=== PATIENT | male | born 1980 | race Caucasian/White ===

== ENCOUNTER 2018-05-08 23:17 | Emergency (ER) | payer BC, SELFPAY ==
[2018-05-08 23:17] VITALS: BP 174/92; PULSE 84; RESP 22; TEMP 36.6; O2SAT 97; BMI 54.1
--- NOTE | 2018-05-08 23:39 | EKG12_ITS ---
Test Reason : CP Blood Pressure : / mmHG Vent. Rate : 085 BPM Atrial Rate : 085 BPM P-R Int : 154 ms QRS Dur : 102 ms QT Int : 376 ms P-R-T Axes : 009 032 041 degrees QTc Int : 447 ms Normal sinus rhythm Normal ECG Confirmed by SAPNA DOE ([id number]), avid editor LAUREN CA ([id number]) on 05/12/2018 1:26:48 PM Referred By: MISSY Confirmed By:SAPNA DOE
--- NOTE | 2018-05-08 23:40 | RAD_ITS ---
STUDY: X-RAY CHEST REASON FOR EXAM: Male, 37 years old. Chest pain. TECHNIQUE: Frontal and lateral views of the chest. COMPARISON: None. FINDINGS: The lungs are clear and expanded. There is no demonstrated pleural abnormality. Normal size heart. Normal mediastinum and clifton. Normal visualized pulmonary arteries. Normal visualized aortic arch and descending thoracic aorta. Normal visualized thoracic spine. Normal visualized ribs, clavicles, and shoulders. There is no demonstrated abnormality of the visualized soft tissue structures of the upper abdomen. RAD/Chest PA and Lateral IMPRESSION: Normal x-ray examination of the chest. Electronically Signed: Shane Koch MD at 0:10 EST , Service support ,
--- NOTE | 2018-05-08 23:49 | ED.DCSUM_ITS ---
- ER Visit Summary Date of Service: 05/08/18 Chief Complaint: Chest pain History of Present Illness: The patient is a 37 M is ending with 1 hour of bilateral upper chest pain. It started at rest. It was not worse with exertion nor was it pleuritic. No recent travel or immobilization. No history of DVT or PE. No associated diaphoresis. It has now resolved. He does have a history of hypertension and missed his medication the last 2 days but did take it today. He also smokes and states his blood pressure becomes more elevated when he has not smoked cigarettes in a while. He has not smoked for at least 2 hours now. He had chest pain 6 months ago and had an extensive evaluation Physical Examination: He is hypertensive but other vitals are within normal limits. He is not in distress. Neck is supple. Heart tones are regular and without murmur. Lungs are clear bilaterally. Abdomen is soft and nontender. Strong pulses in all extremities. No tenderness along the lower extremity venous system, palpable cords, or other evidence of DVT. Test Results: EKG is unremarkable. He is pain-free now. Blood pressure is somewhat elevated. He will be observed here and labs are pending. Care will be turned over to the oncoming physician to check labs. Emergency Department Course and Treatment: [] Treatment Plan: [] Disposition: [] Impression: [] This note was generated with [employer] dictation software. It may contain incorrect words, spelling, and punctuation that were not noted in review of the chart prior to signing ED Disposition - Plan for ED Patient: Referrals: Mark Mccarthy III, MD [Primary Care Provider] -
[2018-05-08] MEDS: Aspirin 81 MG TAB.CHEW 324 MG PO (23:58)
[2018-05-09 00:05] VITALS: BP 162/95; PULSE 79; RESP 17
[2018-05-09 00:25] LABS: Absolute Lymphocyte Count 2.72 X10^3/ul (0.83-4.51); Absolute Neutrophil Count 5.7 X10^3/uL (2.0-7.7); Basophil# 0.02 X10^3/uL; Basophil% 0.2 % (0-1); Eosinophils% 2.1 % (0-5); Hematocrit 46.2 % (40-54); Hemoglobin 14.9 g/dl (13.0-16.5); Lymphocyte # 2.72 X10^3/ul (4.0); Lymphocyte % 29.1 % (19-41); Mean Corp Hgb Conc 32.3 g/gl (32-36); Mean Corpuscular Hgb 26.8 pg (27.0-32.0); Mean Corpuscular Volume 83.2 fL (80-94); Mean Platelet Vol. 10.8 fl (6.2-12.0); Monocyte# 0.73 X10^3/uL; Monocyte% 7.8 % (0-10); Neutrophil # 5.65 X10^3/uL (2.7-7.7); Neutrophil % 60.5 % (47-70); Platelet Count 253 K/mm3 (150-450); RBC Distribution Width CV 14.4 % (11.6-14.6); RBC Distribution Width SD 43.9 fl (35.1-43.9); Red Blood Count 5.55 M/mm3 (4.6-6.2); White Blood Count 9.4 K/mm3 (4.4-11.0)
[2018-05-09 00:33] LABS: POSITIVE COUNT NO; POSITIVE DIFFERENTIAL NO; POSITIVE MORPHOLOGY NO
[2018-05-09 00:57] LABS: Anion Gap 7 (5-15); BUN 9 mg/dL (7-18); BUN/Creat Ratio 11.6 RATIO (10-20); Calcium,Total 8.5 mg/dL (8.5-10.1); Chloride 110 mmol/L (98-107); Creatinine, Serum 0.77 mg/dL (0.70-1.30); EST Glomerular Filtration Rate 121 mL/min (>60); Est Glom Filt Rate - Afr Amer 146 mL/min (>60); Estimated Creatinine Clearance 145.57 ml/min; Glucose 86 mg/dL (74-106); Potassium 4.6 mmol/L (3.5-5.1); Sodium Level 141 mmol/L (136-145)
[2018-05-09 02:01] VITALS: BP 154/65; PULSE 72; RESP 22; O2SAT 98
--- NOTE | 2018-05-09 03:39 | ED.DEP ---
ED Disposition - Plan for ED Patient: Disposition: Home or Assisted Living Diagnosis: Chest pain, unspecified Instructions: ED Chest Pain Atypical Unkn Cause Referrals: Mark Mccarthy III, MD [Primary Care Provider] - (call for appt this week)
[2018-05-09 03:53] VITALS: BP 150/77; PULSE 75; RESP 14; O2SAT 100
== END 2018-05-09 03:53 | disposition home or self-care (01) ==
PROVIDERS: Emergency Medicine; Emergency Provider Emergency Medicine; Family Provider Family Medicine; PCP Family Medicine
DX: R07.9 Chest pain, unspecified (principal); I10 Essential (primary) hypertension; Z72.0 Tobacco use
CPT/HCPCS: 71046; 80048; 84484; 85025; 93005; 99285; A4216

== ENCOUNTER 2018-09-19 12:24 | Day surgery (SDC) | payer BC, SELFPAY ==
[2018-09-19 12:40] VITALS: BP 136/87; PULSE 72; RESP 18; TEMP 37.5; O2SAT 99; BMI 50.5
[2018-09-19 13:02] LABS: Anion Gap 8 (5-15); BUN 13 mg/dL (7-18); BUN/Creat Ratio 18.8 RATIO (10-20); Calcium,Total 8.9 mg/dL (8.5-10.1); Chloride 109 mmol/L (98-107); Creatinine, Serum 0.69 mg/dL (0.70-1.30); EST Glomerular Filtration Rate 137 mL/min (>60); Est Glom Filt Rate - Afr Amer 166 mL/min (>60); Estimated Creatinine Clearance 162.45 ml/min; Glucose 91 mg/dL (74-106); Potassium 3.9 mmol/L (3.5-5.1); Sodium Level 142 mmol/L (136-145)
--- NOTE | 2018-09-19 13:43 | PCM.DC ---
You will use the following diet at home:: No restrictions Discharge Activity: May not drive while taking narcotic pain medications. Call your doctor if your incision/area has: Increased Pain/ Swelling Additional Dressing/Incision Instructions:: nasal saline to both nostrils 5 times daily. mupirocin ointment to incisions twice daily. sleep with head of bed elevated. do not get bridge of nose wet until the morning of your follow up, then get it very wet. Allergies/Adverse Reactions: Allergies No Known Allergies Allergy (Verified 09/19/18 12:40) Medications to take at Discharge Lisinopril [Zestril] 20 mg PO DAILY 05/08/18 Oxycodone HCl/Acetaminophen [Percocet 5/325] 1 tab PO Q6H PRN PRN 5 Days #15 tab 09/19/18 Sulfamethoxazole/Trimethoprim [Bactrim 400-80 mg Tablet] 1 ea PO BID #12 tab 09/19/18 The following prescriptions were given: Sulfamethoxazole/Trimethoprim [Bactrim 400-80 mg Tablet] 1 ea PO BID #12 tab Prescription Printed Oxycodone HCl/Acetaminophen [Percocet 5/325] 1 tab PO Q6H PRN PRN 5 Days #15 tab PRN Reason: Pain Prescription Printed Orders to be completed after discharge: Basic Metabolic Profile (BMP) Time Frame: 09/19/18, Facility: [facility], Location: Laboratory Primary Care Physician: Mark Mccarthy III, MD [Primary Care Provider] - Test Results: Test results from this visit will be discussed in further detail at your follow-up appointment, if applicable. Please Follow Up With: Tres Tony MD When: 1 week
--- NOTE | 2018-09-19 13:45 | OP.PCM_ITS ---
Problem List (1) Nasal congestion Status: Chronic (2) Nasal septal deformity Status: Chronic (3) Nasal bones, closed fracture Status: Chronic (4) Nasal valve collapse Status: Chronic (5) Nasal turbinate hypertrophy Status: Chronic Report of Operation Date of Procedure: 09/19/18 Pre-Operative Diagnosis: 1. nasal congestion. 2. nasal septal deviation. 3. internal nasal valve collapse, right and left. 4. nasal bone fracture. 5. inferior turbinate hypertrophy, right and left Post-Operative Diagnosis: 1. nasal congestion. 2. nasal septal deviation. 3. internal nasal valve collapse, right and left. 4. nasal bone fracture. 5. inferior turbinate hypertrophy, right and left Surgery/Procedure Performed:: 1. open septorhinoplasty. 2. correction internal nasal valve collapse, right and left. 3. submucous resection inferior turbinates, right and left Type of Anesthesia:: General Description of Procedure: on the day of the procedure, after appropriate informed consent was obtained, the patient was brought to the operating room and placed in supine position on the operating table. he was placed under general endotracheal anesthesia by the anesthesiologist. the endotracheal tube was secured, the eyes were taped. the table was rotated 90 degrees toward the surgeon. the nose was injected with lidocaine/epinephrine. the face was prepped and draped in sterile fashion. an inverted v columellar incision was made with a [place] blade. this traversed into right and left marginal incisions using three point retraction and an iris scizzor. the scroll region and upper lateral cartilages were dissected. the medial crura were lateralized and the anterior septal angle was located. submucoperichondrial flaps were dissected on the left then right with a yogesh elevator. this was taken posteriorly to the bony/cartilaginous junction and inferiorly to the maxillary crest. a # 15 blade was used to disarticulate the upper lateral cartilages from the nasal septum. - Admit VTE Documentation VTE Mechan Device Prophylaxis: SCD's
[2018-09-19] MEDS: Oxymetazoline 0.05% 1 SPRAY SPRAY.BTL 15 SPRAY (14:30)
[2018-09-19] MEDS: Mupirocin Ointment 22gm Tube 1 APPLIC (16:00)
[2018-09-19 16:46] VITALS: BP 136/87; BP 92/45; PULSE 73; RESP 16; TEMP 36.2; O2SAT 93
[2018-09-19 17:00] VITALS: BP 136/87; BP 92/65; PULSE 74; RESP 16; O2SAT 90
[2018-09-19 17:15] VITALS: BP 136/87; BP 90/52; PULSE 79; RESP 16; TEMP 36.5; O2SAT 92
[2018-09-19] MEDS: Ondansetron 4 MG/2 ML Vial IV (18:00)
[2018-09-19] MEDS: Scopolamine 1mg/72hr Patch 1 PATCH TD (18:11)
[2018-09-19 18:40] VITALS: BP 106/67; BP 136/87; PULSE 69; RESP 16; TEMP 36.5; O2SAT 95
== END 2018-09-19 19:09 | disposition home or self-care (01) ==
LOC: SDC 12:26 → AC 12:27
PROVIDERS: Anesthesiology; Family Provider Family Medicine; PCP Family Medicine; Referring Provider Otolaryngology; Visit Provider Otolaryngology
PROC: (CPT 30140; principal; 2018-09-19 13:45)
DX: J34.2 Deviated nasal septum (principal); J34.3 Hypertrophy of nasal turbinates; R09.81 Nasal congestion; M95.0 Acquired deformity of nose; G47.30 Sleep apnea, unspecified; I10 Essential (primary) hypertension; F17.200 Nicotine dependence, unspecified, uncomplicated; Z79.899 Other long term (current) drug therapy
CPT/HCPCS: 30140; 30420; 36415; 80048; J7120; J2405

== ENCOUNTER 2019-03-04 13:48 | Emergency (ER) | payer BC, SELFPAY ==
[2019-03-04 13:49] VITALS: BP 129/72; PULSE 74; RESP 18; O2SAT 98
[2019-03-04 13:50] VITALS: BP 129/72; PULSE 84; RESP 17; TEMP 37.1; O2SAT 98; BMI 42.0
[2019-03-04] MEDS: Ketorolac 30 MG/ML Syringe IV (14:04)
[2019-03-04] MEDS: Ondansetron 4 MG/2 ML Vial IV (14:04)
--- NOTE | 2019-03-04 15:23 | CT_ITS ---
STUDY: CT ABDOMEN AND PELVIS WITHOUT CONTRAST REASON FOR EXAM: Male, 38 years old. RT FLANK PAIN RADIATION DOSAGE (If Supplied By Facility): CTDIvol = ( 23.89 ) mGy, DLP = ( 1271.21 ) mGycm TECHNIQUE: Transaxial images were obtained from the dome of the diaphragm to the symphysis pubis without oral contrast, and without intravenous contrast. Sagittal and coronal images were reconstructed. Individualized dose optimization techniques were used for this CT. COMPARISON: None. FINDINGS: The visualized lung bases are unremarkable. The visualized portions of the heart are within normal limits. There is decreased attenuation of the liver consistent with steatosis. Normal gallbladder and extrahepatic biliary system. Normal spleen. Normal pancreas. Normal bilateral adrenal glands. Mild right hydronephrosis and perinephric stranding. Mild right hydroureter with a 2 mm calculus in the region of the right UVJ on image 160. Normal left kidney. There are operative changes of the stomach compatible with bariatric surgery. No dilated loops of small bowel. Normal colon. The appendix is visualized and appears normal. Normal abdominal aorta. Normal inferior vena cava. Normal retroperitoneum. Normal urinary bladder. Normal abdominal wall. Normal osseous structures. CT/Abdomen/Pelvis without Cont IMPRESSION: 1. 2 mm right UVJ calculus with mild hydronephrosis. Electronically Signed: Jose Cruz Collins MD (Brooks) at 16:53 EST , Service support ,
--- NOTE | 2019-03-04 15:25 | ED.DCSUM_ITS ---
- ER Visit Summary Date of Service: 03/04/19 Chief Complaint: Flank pain History of Present Illness: The patient is a 38 M with right flank pain since yesterday. He has a history of kidney stones. No other abdominal pathology or symptoms previously. Physical Examination: Afebrile and vital signs unremarkable. Right flank tender to palpation. No guarding or rebound. Skin appears normal. Test Results: Urine, labs, CT pending. Emergency Department Course and Treatment: Patient was treated with Toradol and Zofran in triage. I saw him, and he is having continued pain. He received fluids and Dilaudid. We are awaiting results. Labs are unremarkable. Urinalysis is pending. Patient has a 2 mm right UVJ stone. Patient will be treated with pain medicine, Flomax, Zofran. Follow-up with urology. Will discharge pending an unremarkable urinalysis. Treatment Plan: As above Disposition: Discharge Impression: 1. Ureteral colic This note was generated with MICMAL[employer] dictation software. It may contain incorrect words, spelling, and punctuation that were not noted in review of the chart prior to signing ED Disposition - Plan for ED Patient: Referrals: Mark Mccarthy III, MD [Primary Care Provider] -
[2019-03-04] MEDS: HYDROmorphone 1 MG/ML Syringe IV (15:38)
[2019-03-04] MEDS: 0.9% Normal Saline 1,000 ML 1000 ML IV (15:40)
[2019-03-04 15:49] VITALS: BP 151/78; PULSE 73; RESP 16; O2SAT 98
[2019-03-04 15:57] LABS: Absolute Lymphocyte Count 2.29 X10^3/uL (0.83-4.51); Absolute Neutrophil Count 7.3 X10^3/uL (2.0-7.7); Basophil# 0.05 X10^3/uL; Basophil% 0.5 % (0-1); Eosinophil# 0.13 X10^3/uL; Eosinophils% 1.2 % (0-5); Hematocrit 43.3 % (40-54); Hemoglobin 14.4 g/dL (13.0-16.5); Lymphocyte # 2.29 X10^3/ul (4.0); Lymphocyte % 21.4 % (19-41); Mean Corp Hgb Conc 33.3 g/dL (32-36); Mean Corpuscular Hgb 26.2 pg (27.0-32.0); Mean Corpuscular Volume 78.9 fL (80-94); Monocyte# 0.89 X10^3/uL; Monocyte% 8.3 % (0-10); NRBC Flagged by Analyzer 0 % (0-5); Neutrophil # 7.28 X10^3/uL (2.7-7.7); Neutrophil % 68.1 % (47-70); Platelet Count 331 K/mm3 (150-450); RBC Distribution Width CV 16.6 % (11.6-14.6); RBC Distribution Width SD 46.8 fl (35.1-43.9); Red Blood Count 5.49 M/mm3 (4.6-6.2); White Blood Count 10.7 K/mm3 (4.4-11.0)
[2019-03-04 16:05] LABS: Anion Gap 11 (5-15); BUN 9 mg/dL (7-18); BUN/Creat Ratio 11.5 RATIO (10-20); Calcium,Total 9.7 mg/dL (8.5-10.1); Chloride 113 mmol/L (98-107); Creatinine, Serum 0.78 mg/dL (0.70-1.30); EST Glomerular Filtration Rate 119 mL/min (>60); Est Glom Filt Rate - Afr Amer 144 mL/min (>60); Estimated Creatinine Clearance 142.32 ml/min; Glucose 112 mg/dL (74-106); Potassium 3.6 mmol/L (3.5-5.1); Sodium Level 142 mmol/L (136-145)
[2019-03-04 17:00] VITALS: BP 145/87; PULSE 78; RESP 16; O2SAT 98
[2019-03-04 17:08] LABS: Bacteria 0 SEEN /hpf (None Seen); Color, Urine Yellow (Yellow); Glucose, Dipstick Normal (Normal); Ketone-Dipstick 50 mg/dl (Negative); Leukocyte Esterase-Dipstick 100 /ul (Negative); Mucous, Urine 0 SEEN /hpf (<or=2+); Nitrite-Dipstick Negative (Negative); Occult Blood-Urine 250 /ul (Negative); Protein-Dipstick 30 mg/dl (Negative); Urine Clarity Cloudy (Clear); Urine Urobilinogen 1 mg/dl (Normal)
[2019-03-04 17:09] LABS: Urine Bilirubin Dipstick 1 mg/dL (Negative)
--- NOTE | 2019-03-04 17:11 | ED.DEP ---
ED Disposition - Plan for ED Patient: Instructions: KIDNEY STONE w/ Colic Prescriptions: Tamsulosin HCl [Flomax] 0.4 mg PO DAILY #7 cap Prescription Printed Oxycodone HCl/Acetaminophen [Percocet 5/325] 1 tab PO Q6H PRN PRN 3 Days #12 tab PRN Reason: Pain Prescription Printed Ondansetron [Zofran Odt] 4 mg PO Q8H PRN PRN #10 tab PRN Reason: Nausea Prescription Printed Referrals: Bart Song MD [STAFF PHYSICIAN] -
[2019-03-04 17:16] LABS: Red Blood Cells-Urine 50-100 SEEN /hpf (0-5); Squamous Epithelial Cells - UA 0-5 SEEN /hpf (0-5); White Blood Cells 5-10 SEEN /hpf (0-5)
[2019-03-04] MEDS: Morphine 4 MG/ML Syringe IV (17:26)
[2019-03-04 18:03] VITALS: BP 156/68; PULSE 75; RESP 14
== END 2019-03-04 18:04 | disposition home or self-care (01) ==
LOC: ED 16:20
PROVIDERS: Emergency Provider Emergency Medicine; Family Provider Family Medicine; PCP Family Medicine
DX: N13.2 Hydronephrosis with renal and ureteral calculous obstruction (principal); Z87.442 Personal history of urinary calculi; Z72.0 Tobacco use
CPT/HCPCS: 74176; 80048; 81001; 85025; 96361; 96374; 96375; 99284; A4216; J2405

== ENCOUNTER → 2019-03-08 16:23 | Outpatient (CLI) | payer BC, SELFPAY ==
[2019-03-04 13:50] VITALS: BMI 42.0
[2019-03-08 17:26] LABS: Anion Gap 6 (5-15); BUN 11 mg/dL (7-18); BUN/Creat Ratio 16.4 RATIO (10-20); Calcium,Total 9.2 mg/dL (8.5-10.1); Chloride 110 mmol/L (98-107); Creatinine, Serum 0.67 mg/dL (0.70-1.30); EST Glomerular Filtration Rate 142 mL/min (>60); Est Glom Filt Rate - Afr Amer 172 mL/min (>60); Glucose 96 mg/dL (74-106); Potassium 3.8 mmol/L (3.5-5.1); Sodium Level 143 mmol/L (136-145)
== END ==
PROVIDERS: Family Provider Family Medicine; PCP Family Medicine; Referring Provider Urology; Visit Provider Urology
DX: N20.1 Calculus of ureter (principal)
CPT/HCPCS: 36415; 80048

== ENCOUNTER 2019-04-24 03:48 | Emergency (ER) | payer BC, SELFPAY ==
[2019-04-24 03:49] VITALS: BP 154/97; PULSE 74; RESP 18; TEMP 36.5; O2SAT 100; BMI 39.9
[2019-04-24 04:06] LABS: Mucous, Urine 0 SEEN /hpf (<or=2+)
[2019-04-24 04:09] LABS: Color, Urine Straw (Yellow); Glucose, Dipstick Normal (Normal); Ketone-Dipstick 5 mg/dl (Negative); Leukocyte Esterase-Dipstick 25 /ul (Negative); Nitrite-Dipstick Negative (Negative); Occult Blood-Urine 250 /ul (Negative); Protein-Dipstick 30 mg/dl (Negative); Specific Gravity, Urine 1.025 (1.002-1.030); Urine Clarity Sl. Cloudy (Clear); Urine Urobilinogen 1 mg/dl (Normal)
--- NOTE | 2019-04-24 04:12 | CT_ITS ---
STUDY: CT ABDOMEN AND PELVIS WITHOUT CONTRAST REASON FOR EXAM: Male, 38 years old. Right flank pain, woke up at midnight unable to urinate, hematuria, hx htn, gastric bypass and k''s RADIATION DOSAGE (If Supplied By Facility): CTDIvol = ( 21.29 ) mGy, DLP = ( 1117.14 ) mGycm TECHNIQUE: Transaxial 2.5 mm images were obtained from the dome of the diaphragm to the symphysis pubis without oral contrast, and without intravenous contrast. Sagittal and coronal images were reconstructed. This examination is limited for the evaluation of gastrointestinal, solid organs and vascular structures due to the lack of intravenous and oral contrast. Neck obesity Individualized dose optimization techniques were used for this CT. COMPARISON: CT abdomen pelvis 03/04/2019. 08/10/2010 FINDINGS: The visualized lung bases are unremarkable. The visualized portions of the heart are within normal limits. There is decreased attenuation of the liver consistent with steatosis. There is low attenuation along the falciform ligament most consistent with focal fatty sparing. Normal gallbladder and extrahepatic biliary system. There is mild splenomegaly. Normal pancreas. Normal bilateral adrenal glands. Mild right hydronephrosis and hydroureter with an obstructing distal right ureteral calculus of 0.3 to 0.4 cm approximately to 6 cm superior to the UVJ. Punctate right inferior renal pole calculus. Mild bilateral perirenal stranding. There is no left obstructive uropathy, left renal or ureteral calculi. Status post gastric bypass. Normal small intestine. Normal colon. The appendix is visualized and appears normal. Normal abdominal aorta. Normal inferior vena cava. Normal retroperitoneum. Decompressed urinary bladder. Normal visualized prostate gland. There is a right-sided inguinal hernia containing adipose tissue. Normal osseous structures. CT/Abdomen/Pelvis without Cont IMPRESSION: Mild right hydronephrosis and hydroureter with a distal obstructing right ureteral calculus of 0.3 x 0.4 cm approximately 2 cm superior to the UVJ. Stable hepatic steatosis, focal fatty replacement, fat-containing right inguinal hernia and mild splenomegaly. Electronically Signed: Caridad May MD at 5:11 EST , Service support ,
[2019-04-24 04:14] LABS: Urine Bilirubin Dipstick 1 mg/dL (Negative)
[2019-04-24 04:16] LABS: Bacteria RARE /hpf (None Seen); Calcium Oxalate Crystals Ur 2+ /hpf (<or=2+); Red Blood Cells-Urine 25-50 SEEN /hpf (0-5); Squamous Epithelial Cells - UA 0-5 SEEN /hpf (0-5); White Blood Cells 10-25 SEEN /hpf (0-5)
[2019-04-24] MEDS: Ondansetron 4 MG/2 ML Vial IV (04:22)
[2019-04-24] MEDS: Morphine 4 MG/ML Syringe IV (04:22)
[2019-04-24] MEDS: 0.9% Normal Saline 1,000 ML 999 ML IV (04:22)
[2019-04-24 04:26] LABS: Absolute Lymphocyte Count 2.48 X10^3/uL (0.83-4.51); Absolute Neutrophil Count 3.6 X10^3/uL (2.0-7.7); Basophil# 0.04 X10^3/uL; Basophil% 0.6 % (0-1); Eosinophil# 0.21 X10^3/uL; Hematocrit 41.4 % (40-54); Hemoglobin 13.3 g/dL (13.0-16.5); Lymphocyte # 2.48 X10^3/ul (4.0); Lymphocyte % 35.5 % (19-41); Mean Corp Hgb Conc 32.1 g/dL (32-36); Mean Corpuscular Hgb 26.1 pg (27.0-32.0); Mean Corpuscular Volume 81.3 fL (80-94); Mean Platelet Vol. 11.8 fl (6.2-12.0); Monocyte# 0.59 X10^3/uL; Monocyte% 8.5 % (0-10); NRBC Flagged by Analyzer 0 % (0-5); Neutrophil # 3.63 X10^3/uL (2.7-7.7); Platelet Count 210 K/mm3 (150-450); RBC Distribution Width CV 14.8 % (11.6-14.6); RBC Distribution Width SD 43.5 fl (35.1-43.9); Red Blood Count 5.09 M/mm3 (4.6-6.2)
--- NOTE | 2019-04-24 04:26 | ED.VIS.GEN ---
History of Present Illness Chief Complaint: Complaint Informant: Patient Onset: Today Context: Gradual Onset Timing: Continuous Narrative: Patient is a 38-year-old male with history of kidney stones, gastric bypass and hypertension presenting with hematuria and flank pain. Patient states his symptoms started tonight and woke him up from sleep. He states he feels that he needs to urinate but is not able to. He did have a small amount of blood in his urine. He states he has urgency but is having hard time going and he has associated frequency. He has right-sided flank pain. He notes this feels like his prior kidney stones. He has required lithotripsy in the past. He denies any associated nausea or vomiting. He did not take any medications for his pain prior to arrival. He denies any fever or chills. He states his bowel movements been normal. He denies any testicular pain. Past Medical History - Allergies and Home Meds Allergies/Adverse Reactions: Allergies NSAIDS (Non-Steroidal Anti-Inflamma Adverse Reaction (Verified 04/24/19 03:49) Other GASTRIC BYPASS Primary Care Physician: Mark Mccarthy III, MD [Primary Care Provider] - Past Medical History: - - Hypertension, kidney stones Surgical History: - - Gastric bypass, hernia surgery Smoking Status: Current every day smoker Review of Systems General: Denies: Chills, Fever, Sweats Eyes: Denies: Visual changes - bilaterally, Diplopia ENT: Denies: Rhinorrhea, Sore throat Cardiovascular: Denies: Chest pain, Palpitations Respiratory: Denies: Dyspnea, Cough, Dyspnea on exertion Gastrointestinal: Reports: Abdominal pain - Right-sided. Denies: Nausea, Vomiting, Diarrhea, Melena, Hematochezia Genitourinary: Reports: Hematuria, Frequency, - - Right flank pain. Denies: Dysuria Musculoskeletal: Denies: Back pain, Extremity Pain Skin: Denies: Rash, Wounds Neurological: Denies: Headache, Weakness, Numbness Physical Exam Vital Signs/Narrative: Vital Signs Temp Pulse Resp BP Pulse Ox 04/24/19 03:49 97.7 F L 74 18 154/97 H 100 Inital Vital Signs reviewed: Yes General: Well nourished, Well developed, No Acute Distress Head: Normocephalic, Atraumatic Eyes: Perrl, EOMI ENT: Moist mucous membranes, No rhinorrhea Neck: Supple, Nontender Cardiovascular: Regular rate, Regular rhythm, No murmurs Respiratory: No distress, CTA bilaterally, Chest nontender Abdomen: Soft, Nontender, Nondistended, Normal bowel sounds Back: Nontender, Normal Inspection. Negative for: CVA tenderness Extremities: Nontender, No edema Skin: Normal color, No rash Neurological: Alert, Oriented x3, Cranial nerves II-XII grossly intact, Normal Strength, Normal Sensation Psychological: Normal affect, Normal Mood Diagnostic/Tx/Re-eval Clinical Impression(s) from Imaging Studies Abdomen/Pelvis CT 04/24/19 04:12 IMPRESSION: Mild right hydronephrosis and hydroureter with a distal obstructing right ureteral calculus of 0.3 x 0.4 cm approximately 2 cm superior to the UVJ. Stable hepatic steatosis, focal fatty replacement, fat-containing right inguinal hernia and mild splenomegaly. Electronically Signed: Caridad May MD at 5:11 EST , Service support , Laboratory Data 04/24/19 04/24/19 04/24/19 03:55 03:55 04:00 WBC 7.0 RBC 5.09 Hgb 13.3 Hct 41.4 MCV 81.3 MCH 26.1 L MCHC 32.1 RDW Std Deviation 43.5 RDW Coeff of Trace 14.8 H Plt Count 210 MPV 11.8 Immature Gran % (Auto) 0.400 Neut % (Auto) 52.0 Lymph % (Auto) 35.5 Bertie % (Auto) 8.5 Eos % (Auto) 3.0 Baso % (Auto) 0.6 Absolute Neuts (auto) 3.6 Absolute Lymphs (auto) 2.48 Nucleated RBC % 0 Sodium 143 Potassium 3.9 Chloride 113 H Carbon Dioxide 25.0 Anion Gap 5 BUN 8 Creatinine 0.69 L Estim Creat Clear Calc 160.89 Est GFR (MDRD) Af Amer 166 Est GFR (MDRD) Non-Af 137 BUN/Creatinine Ratio 11.6 Glucose 104 Calcium 8.9 Urine Color Straw Urine Clarity Sl. Cloudy Urine pH 5.0 Ur Specific [place] 1.025 Urine Protein 30 H Urine Glucose (UA) Normal Urine Ketones 5 H Urine Occult Blood 250 H Urine Nitrite Negative Urine Bilirubin 1 H Urine Urobilinogen 1 H Ur Leukocyte Esterase 25 H Urine RBC 25-50 SEEN Urine WBC 10-25 SEEN Ur Squamous Epith Cells 0-5 SEEN Calcium Oxalate Crystal 2+ Urine Bacteria RARE Urine Mucus 0 SEEN - Medical Decision Making Is evaluated for right-sided flank pain. He is also having urinary urgency, frequency and hematuria. Physical exam is consistent with ureterolithiasis. CT confirms this. The stone is 5 mm and should pass spontaneously. Patient is referred to Dr. Andrade for follow-up as he does have recurrent kidney stones. He is encouraged to increase his fluid intake/water intake. He is treated in the ER with Toradol, Zofran and morphine. He does require dose of Dilaudid as well. On reevaluation he is feeling better. He is given oral oxycodone prior to discharge. Patient cannot take NSAIDs regularly because of his gastric bypass. He should be fine for 1 dose of Toradol however. He is discharged home with symptomatic treatment as well as Flomax. Patient is counseled on signs and symptoms requiring return to the emergency room. Patient verbalizes agreement and understand this plan. Patient discharged home in stable and improved condition. ED Disposition - Plan for ED Patient: Disposition: Home or Assisted Living Diagnosis: Renal calculus, right Instructions: KIDNEY STONE w/ Colic Prescriptions: Tamsulosin HCl [Flomax] 0.4 mg PO DAILY #7 cap Transmission Status: Pending to [id number] Oxycodone HCl/Acetaminophen [Percocet 5/325] 1 tablet PO Q6H PRN PRN 3 Days #12 tablet PRN Reason: Pain Transmission Status: Sent to [facility] Ondansetron [Zofran Odt] 4 mg PO Q8H PRN PRN #10 tab PRN Reason: Nausea Transmission Status: Pending to [facility] Referrals: Mark Mccarthy III, MD [Primary Care Provider] - Bart Song MD [STAFF PHYSICIAN] - 3-5 Days
[2019-04-24 04:29] LABS: Anion Gap 5 (5-15); BUN 8 mg/dL (7-18); BUN/Creat Ratio 11.6 RATIO (10-20); Calcium,Total 8.9 mg/dL (8.5-10.1); Chloride 113 mmol/L (98-107); Creatinine, Serum 0.69 mg/dL (0.70-1.30); EST Glomerular Filtration Rate 137 mL/min (>60); Est Glom Filt Rate - Afr Amer 166 mL/min (>60); Estimated Creatinine Clearance 160.89 ml/min; Glucose 104 mg/dL (74-106); Potassium 3.9 mmol/L (3.5-5.1); Sodium Level 143 mmol/L (136-145)
[2019-04-24] MEDS: HYDROmorphone 0.5 MG/0.5 ML SYRINGE IV (04:48)
[2019-04-24] MEDS: Ketorolac 15 MG/ML Vial IV (05:36)
[2019-04-24] MEDS: oxyCODONE 5 MG Tablet PO (05:37)
[2019-04-24 06:52] VITALS: BP 133/81; PULSE 66; RESP 16; O2SAT 98
== END 2019-04-24 06:53 | disposition home or self-care (01) ==
PROVIDERS: Emergency Provider Emergency Medicine; PCP Family Medicine
DX: N13.2 Hydronephrosis with renal and ureteral calculous obstruction (principal); I10 Essential (primary) hypertension; F17.200 Nicotine dependence, unspecified, uncomplicated; K40.90 Unilateral inguinal hernia, without obstruction or gangrene, not specified as recurrent; K76.0 Fatty (change of) liver, not elsewhere classified; R16.1 Splenomegaly, not elsewhere classified; Z98.84 Bariatric surgery status; Z87.442 Personal history of urinary calculi; Z79.899 Other long term (current) drug therapy
CPT/HCPCS: 74176; 80048; 81001; 85025; 96361; 96374; 96375; 99283; J7030; A4216; J2405

== ENCOUNTER 2019-04-24 16:53 | Emergency (ER) | payer BC, SELFPAY ==
[2019-04-24 03:49] VITALS: BMI 39.9
[2019-04-24 16:55] VITALS: BP 145/59; PULSE 76; RESP 24; TEMP 36.6; O2SAT 100; BMI 38.7
--- NOTE | 2019-04-24 17:09 | ED.VIS.GI ---
History of Present Illness Chief Complaint: Flank Pain Informant: Patient - Abdominal Pain/Flank Pain Onset: Today - 14 hrs ago or so Context: Sudden Onset - awoke from sleep Timing: Continuous, Waxes and wanes Quality: Aching Location: Right Flank - and into RUQ; not groin Current Severity: Severe Maximum Severity: Severe Relieved by: Nothing - tried Rx analgesics and antiemetic but vomited them up - Nausea/Vomiting/Emesis GI Symptom: Nausea, Vomiting Onset: Today Quality: Nonbilious. Negative for: Blood streaks Severity: Severe - Diarrhea/Melena/Hematochezia GI Symptom: Negative for: Diarrhea, Melena, Hematochezia Associated Symptoms: Hematuria. Negative for: Dysuria, Frequency, Urgency Narrative: Patient seen here this morning for this kidney stone that was diagnosed on CT, but his symptoms are out of control despite the prescriptions he was given. No new symptoms compared with prior visit earlier today. Has needed procedures to remove stones in the past. Prior similar symptoms: Yes - Kidney stones - Past Medical History (1) Kidney stones Status: Chronic (2) Hypertension Status: Chronic Past Medical History - Allergies and Home Meds Allergies/Adverse Reactions: Allergies NSAIDS (Non-Steroidal Anti-Inflamma Adverse Reaction (Verified 04/24/19 16:55) Other GASTRIC BYPASS Primary Care Physician: Bart Song MD [STAFF PHYSICIAN] - 1 Week if not improving Surgical History: - - Gastric bypass, hernia surgery Smoking Status: Current every day smoker Review of Systems General: Denies: Chills, Fever, Sweats Eyes: Denies: Visual changes - bilaterally, Diplopia ENT: Denies: Rhinorrhea, Sore throat Cardiovascular: Denies: Chest pain, Palpitations Respiratory: Denies: Dyspnea, Cough, Dyspnea on exertion Gastrointestinal: Reports: Abdominal pain, Nausea, Vomiting. Denies: Diarrhea, Melena, Hematochezia Genitourinary: Reports: Hematuria - earlier; gone now, - - no urinary retention. Denies: Dysuria, Frequency Musculoskeletal: Reports: Back pain. Denies: Swelling, Extremity Pain Skin: Denies: Rash, Wounds Neurological: Denies: Headache, Weakness, Numbness Physical Exam Vital Signs/Narrative: Vital Signs Temp Pulse Resp BP Pulse Ox 04/24/19 16:55 98 F 76 24 H 145/59 H 100 Inital Vital Signs reviewed: Yes General: Well nourished, Well developed, Acute Distress - painful distress Head: Normocephalic, Atraumatic Eyes: Perrl, EOMI ENT: Moist mucous membranes, No rhinorrhea Neck: Supple, Nontender Cardiovascular: Regular rate, Regular rhythm, No murmurs Respiratory: No distress, CTA bilaterally, Chest nontender Abdomen: Soft, Nontender, Nondistended, Normal bowel sounds Back: Normal Inspection, CVA tenderness - right Extremities: Nontender, No edema Skin: Normal color, No rash Neurological: Alert, Oriented x3, Cranial nerves II-XII grossly intact, Normal Strength, Normal Sensation, Normal Gait Psychological: Normal affect, Normal Mood Diagnostic/Tx/Re-eval - Medical Decision Making Patient was given morphine 10 mg in addition to Zofran. His pain remained controlled, he asked for some antinausea medicine and was given Phenergan and did better further. He did not require any more analgesics. He was observed for several hours due to this being his second visit, he urinated without any difficulty and his pain remained controlled. He has dissolvable Zofran tablets at home in addition to analgesics and he is comfortable going home at this time and is welcome to return anytime. Do not think he needs repeat testing since his urinalysis from earlier today showed no infection and his renal function is unremarkable. He clinically is not septic or febrile. Expectant management is indicated for this 3 x 4 mm distal ureteral stone. ED Disposition - Plan for ED Patient: Disposition: Home or Assisted Living Diagnosis: Renal colic on right side, Urolithiasis Instructions: KIDNEY STONE w/ Colic Referrals: Bart Song MD [STAFF PHYSICIAN] - 1 Week if not improving
[2019-04-24] MEDS: Ondansetron 4 MG/2 ML Vial IV (17:13)
[2019-04-24] MEDS: morphine 10 MG/ML Syringe IV (17:13)
[2019-04-24 17:39] VITALS: BP 149/78; O2SAT 98
[2019-04-24] MEDS: proMETHazine 25 MG/ML Syringe 12.5 MG IV (19:25)
[2019-04-24 19:28] VITALS: BP 153/83; PULSE 72; RESP 18; O2SAT 100
[2019-04-24 20:21] VITALS: BP 138/82; PULSE 61; RESP 16; O2SAT 98
== END 2019-04-24 20:22 | disposition home or self-care (01) ==
PROVIDERS: Emergency Provider Emergency Medicine; PCP Family Medicine
DX: N20.1 Calculus of ureter (principal); I10 Essential (primary) hypertension; F17.200 Nicotine dependence, unspecified, uncomplicated; Z87.442 Personal history of urinary calculi; Z98.84 Bariatric surgery status
CPT/HCPCS: 96361; 96374; 96375; 99284; J7040; A4216; J2405

== ENCOUNTER 2019-04-25 11:10 | Emergency (ER) | payer BC, SELFPAY ==
[2019-04-24 16:55] VITALS: BMI 38.7
[2019-04-25 11:11] VITALS: BP 147/94; PULSE 72; RESP 20; TEMP 36.6; O2SAT 100; BMI 40.3
[2019-04-25 11:54] LABS: Squamous Epithelial Cells - UA 0 SEEN /hpf (0-5)
[2019-04-25 11:59] LABS: Absolute Neutrophil Count 7.5 X10^3/uL (2.0-7.7); Basophil# 0.03 X10^3/uL; Basophil% 0.3 % (0-1); Eosinophil# 0.08 X10^3/uL; Eosinophils% 0.8 % (0-5); Hematocrit 42.9 % (40-54); Hemoglobin 13.4 g/dL (13.0-16.5); Lymphocyte % 13.8 % (19-41); Mean Corp Hgb Conc 31.2 g/dL (32-36); Mean Corpuscular Hgb 25.7 pg (27.0-32.0); Mean Corpuscular Volume 82.2 fL (80-94); Mean Platelet Vol. 11.6 fl (6.2-12.0); Monocyte# 1.15 X10^3/uL; Monocyte% 11.3 % (0-10); NRBC Flagged by Analyzer 0 % (0-5); Neutrophil # 7.49 X10^3/uL (2.7-7.7); Neutrophil % 73.5 % (47-70); Platelet Count 197 K/mm3 (150-450); RBC Distribution Width CV 14.8 % (11.6-14.6); RBC Distribution Width SD 44.6 fl (35.1-43.9); Red Blood Count 5.22 M/mm3 (4.6-6.2); White Blood Count 10.2 K/mm3 (4.4-11.0)
[2019-04-25] MEDS: Morphine 4 MG/ML Syringe IV ×2 (12:00→14:12)
[2019-04-25] MEDS: 0.9% Normal Saline 1,000 ML 1000 ML IV ×2 (12:00→13:30)
[2019-04-25] MEDS: proMETHazine 25 MG/ML Syringe 6.25 MG IV (12:00)
[2019-04-25 12:02] LABS: Color, Urine Yellow (Yellow); Glucose, Dipstick Normal (Normal); Ketone-Dipstick 5 mg/dl (Negative); Leukocyte Esterase-Dipstick 25 /ul (Negative); Nitrite-Dipstick Negative (Negative); Occult Blood-Urine 10 /ul (Negative); Protein-Dipstick 15 mg/dl (Negative); Urine Bilirubin Dipstick Negative (Negative); Urine Clarity Clear (Clear); Urine Urobilinogen Normal (Normal)
[2019-04-25 12:15] LABS: Bacteria RARE /hpf (None Seen); Mucous, Urine 1+ /hpf (<or=2+); Red Blood Cells-Urine 0-5 SEEN /hpf (0-5); White Blood Cells 0-5 SEEN /hpf (0-5)
[2019-04-25 12:21] LABS: Anion Gap 4 (5-15); BUN 7 mg/dL (7-18); BUN/Creat Ratio 6.2 RATIO (10-20); Chloride 111 mmol/L (98-107); Creatinine, Serum 1.13 mg/dL (0.70-1.30); EST Glomerular Filtration Rate 78 mL/min (>60); Est Glom Filt Rate - Afr Amer 94 mL/min (>60); Estimated Creatinine Clearance 98.24 ml/min; Glucose 98 mg/dL (74-106); Lactic Acid 1.1 mmol/L (0.4-1.9); Potassium 3.7 mmol/L (3.5-5.1); Sodium Level 140 mmol/L (136-145)
[2019-04-25 13:31] VITALS: BP 150/86; O2SAT 100
--- NOTE | 2019-04-25 14:37 | RAD_ITS ---
STUDY: X-RAY - ABDOMEN/PELVIS REASON FOR EXAM: Male, 38 years old. RIGHT SIDE FLANK PAIN TECHNIQUE: Single AP view of the abdomen / pelvis. COMPARISON: CT of abdomen and pelvis dated April 24, 2019 which showed right hydronephrosis and hydroureter due to a distal obstructing stone FINDINGS: Normal visualized lung bases. On the prior study Minimal gaseous distention seen in the proximal transverse colon. Surgical suture material is seen on the left side of abdomen. The kidneys shadows are not visualized on this study and are obscured by bowel loops. Small calcified nodule of the right lower pelvis could represent a phlebolith or the recently seen stone in the distal ureter. The cecum is stool-filled. There is no demonstrated free abdominal air. Normal soft tissue structures. Normal visualized osseous structures. RAD/Abdomen Single View (Portable) IMPRESSION: 1. Minimal gaseous distention of the transverse colon 2. Small calcified nodule of the right lower pelvis could represent a phlebolith or the recently seen stone in the distal ureter. Electronically Signed: Az Calix MD at 16:58 EST , Service support ,
[2019-04-25] MEDS: Ondansetron 4 MG/2 ML Vial IV (14:58)
--- NOTE | 2019-04-25 16:03 | ED.VISSUMM ---
- ER Visit Summary Date of Service: 04/25/19 Chief Complaint: Right flank pain History of Present Illness: The patient is a [address] Mark Mccarthy. He has a history of kidney stones. He was seen in the emergency [place] yesterday and diagnosed with a right ureteral stone. He reports that every time he drinks anything he vomits. He is vomited 3-4 times today. No blood in his emesis. Patient reports he has a sharp, stabbing pain in the right flank that is 9 out of 10 at worst and 6 out of 10 currently. Is worsened by movement or riding in a car. It is relieved by Zofran and Percocet. He denies any diarrhea. He denies any dysuria. Does complain of hematuria. Physical Examination: Vitals: Stable. Afebrile. General: Well-nourished and well-developed. Head: Normocephalic atraumatic. Neck: Supple, no lymphadenopathy. No JVD. Nontender. Cardiovascular: Regular rate and rhythm. No murmurs. Respiratory: No respiratory distress. Clear to auscultation bilaterally. Abdominal: Soft, nontender, nondistended, normal bowel sounds. No guarding, rebound, or peritoneal signs. Back: Moderate right CVA tenderness. Extremities: Nontender, no edema. Skin: Normal color, no rash. Neurologic: Alert and oriented ?3. Cranial nerves II through XII are intact. Normal strength and sensation. Psych: Normal affect. Test Results: CBC shows 7 neutrophils 74, lymphocytes 14, monocytes of 11. Chem-7 shows a chloride of 111. UA does not look infected. KUB shows a stone at the right UVJ. Emergency Department Course and Treatment: Patient was treated with morphine, Zofran, and Phenergan IV. He is resting more comfortably. He is not vomited while here. He was given 2 L of normal saline. Treatment Plan: Patient was discussed with Dr. Song. He will be discharged with Zofran, Phenergan, and 12 more Percocet. Instructed to keep his appointment tomorrow morning at 8 AM as previously scheduled. Return to the emergency department for any worsening symptoms. Disposition: To home in improved and stable condition. Impression: 1. Right ureterolithiasis. This note was generated with Pradamaation software. It may contain incorrect words, spelling, and punctuation that were not noted in review of the chart prior to signing ED Disposition - Plan for ED Patient: Disposition: Home or Assisted Living Instructions: KIDNEY STONE w/ Colic Prescriptions: Oxycodone HCl/Acetaminophen [Percocet 5/325] 1 tab PO Q6H PRN PRN 3 Days #12 tab PRN Reason: Pain [facility] proMETHazine suppository [Phenergan Suppository] 25 mg RECTAL Q6H PRN PRN #6 suppos. PRN Reason: Nausea Transmission Status[facility] proMETHazine tablet [Phenergan] 25 mg PO Q6H PRN PRN #10 tab PRN Reason: Nausea Transmission Status: [facility] Ondansetron [Zofran Odt] 4 mg PO Q8H PRN PRN #10 tab PRN Reason: Nausea Transmission Status: [facility] Referrals: Bart Song MD [STAFF PHYSICIAN] - Keep Alison appointment
[2019-04-25 16:29] VITALS: BP 149/99; PULSE 90; RESP 18; O2SAT 100
== END 2019-04-25 16:31 | disposition home or self-care (01) ==
PROVIDERS: Emergency Provider Emergency Medicine; PCP Family Medicine
DX: N20.1 Calculus of ureter (principal); Z87.442 Personal history of urinary calculi; I10 Essential (primary) hypertension; Z72.0 Tobacco use; Z79.899 Other long term (current) drug therapy
CPT/HCPCS: 74018; 80048; 81001; 83605; 85025; 87086; 87088; 96361; 96374; 96375; 96376; 99283; J7030; J2405

== ENCOUNTER 2019-04-27 12:47 | Day surgery (SDC) | payer BC, SELFPAY ==
--- NOTE | 2019-04-27 | CALC_PTH ---
PATIENT: KEARA ESCOBAR LOC: [facility] [place] U#:[id number] AGE/SX: 38/M ROOM: RE04/27/[address]: Dr. Bart Song MD : [id number] BED: DIS: 04/27/2019 SPEC #: [id number] RECD: 04/27/19 16:55 STATUS: SUSSY PRADHANRimma #: [id number] BRIAN: 04/27/19 00:[address]: Bart Song DEPT: SURGICAL PATHOLOGY RECD BY: Raf Leary ENTERED: 04/30/19 09:20 SP TYPE: Calculi OTHR DR: Dr. Mark Mccarthy III, MD Tissues: CALCULI Procedures: Surgery Specimen Level I HEADER OPERATION: Cystoscopy, ureteroscopy, retrograde, balloon dilatation, basket PRE-OP DIAGNOSIS: Right distal ureteral calculi TISSUE SUBMITTED: Right ureteral calculi for analysis GROSS DIAGNOSIS Distal right ureteral calculus, removal: Unremarkable calculus (gross diagnosis only). AM:evon 05/01/19 COMMENT The calculus is submitted in its entirety for chemical stone analysis. The results from this study will be reported separately. GROSS DESCRIPTION Received is one container labeled with the patient's name and designated right ureteral calculus. The specimen consists of a single irregular fragment of light muhammad-white calculus measuring 0.2 x 0.2 x 0.1 cm. The specimen is submitted in its entirety for chemical stone analysis. / AM:evon 04/30/19 TC:5 CPT: 74283
[2019-04-27 13:10] VITALS: BP 141/80; PULSE 72; RESP 17; TEMP 36.8; O2SAT 100; BMI 40.0
[2019-04-27] MEDS: Lactated Ringers 1,000 ML 100 ML IV (13:20)
[2019-04-27] MEDS: Cefazolin 2 GM in 0.9% Normal Saline 100 ML IV (15:16)
--- NOTE | 2019-04-27 15:25 | PCM.DC.URO ---
Discharge Diet: Light diet - advance as tolerated Discharge Activity: Return to Normal Activity Call your doctor if your incision/area has: Sudden Increased Bleeding Suture Line Care: Avoid Pulling/Pushing, Avoid Pinching/Bending Allergies/Adverse Reactions: Allergies NSAIDS (Non-Steroidal Anti-Inflamma Adverse Reaction (Verified 04/27/19 13:02) Other GASTRIC BYPASS Medications to take at Discharge Lisinopril [Zestril] 20 mg PO DAILY 05/08/18 Calcium Citrate 500 mg PO BID 04/24/19 Multivitamin with Minerals [Multiple Vitamin] 1 ea PO DAILY 04/24/19 Ondansetron [Zofran Odt] 4 mg PO Q8H PRN PRN #10 tab 04/24/19 Tamsulosin HCl [Flomax] 0.4 mg PO DAILY #7 cap 04/24/19 proMETHazine tablet [Phenergan] 25 mg PO Q6H PRN PRN #10 tab 04/25/19 Ciprofloxacin [Cipro] 500 mg PO BID #6 tab 04/27/19 Hydrocodone Bitart/Apap 5-325 [[place] 5MG-325MG] 1 tablet PO Q4H PRN PRN 5 Days #20 tablet 04/27/19 The following prescriptions were given: Ciprofloxacin [Cipro] 500 mg PO BID #6 tab Transmission Status: Pending to [facility] Hydrocodone Bitart/Apap 5-325 [[place] 5MG-325MG] 1 tablet PO Q4H PRN PRN 5 Days #20 tablet PRN Reason: Pain Transmission Status: Sent to [facility] Primary Care Physician: Mark Mccarthy III, MD [Primary Care Provider] - Test Results: Test results from this visit will be discussed in further detail at your follow-up appointment, if applicable. Please Follow Up With: Bart Song MD When: please call to make an appointment.
--- NOTE | 2019-04-27 15:48 | OP.PCM_ITS ---
Report of Operation Date of Procedure: 04/27/19 Pre-Operative Diagnosis: Right distal ureteral calculi Post-Operative Diagnosis: Same Surgery/Procedure Performed:: Cystoscopy, right retrograde pyelogram and interpretation of fluoroscopic images, balloon dilation of the right ureter, ureteroscopy and basket extraction of stone, right stent placement. Description of Surgical Findings:: 38-year-old male who has a small stone in the distal right ureter about 3 mm in size I saw him first in the beginning of March I expected the past the stone however he presented to the emergency room several times with severe pain CAT scan was repeated still has the same stone in the distal ureter has not been able to pass it. Therefore recommended we taken the surgery for extraction of stone. 38-year-old male taken back to the operating room at the smooth induction of general anesthesia he was placed in dorsolithotomy position, the penis testicles are prepped and draped in usual sterile fashion, went into the bladder with a 21 Ukrainian rigid cystourethroscope,, identified the right ureteral orifice, cannulated with a Glidewire advanced a wire could feel the stone could feel the stone hit the wire and then over the wire I used the balloon dilator and balloon dilated the distal ureter with a 12 Ukrainian 10 cm balloon dilator. After this was completed I left the wire in place the next the wire I went in with a SlimLine ureteroscope was able to get get into the distal ureter quite easily encountered the stone which was quite small so I used a tipless basket and basketed the stone and then extracted the stone to the ureter. The stone was s ent off for analysis. I then backloaded stent over the wire place a stent up into the right kidney performed a retrograde pyelogram could see the contrast going up to the kidney no other stones were seen left the string of the stent but cut it short to prevent inadvertent extraction. Patient's bladder was drained anesthetic was versed taken back to PACU good condition plan to see him next week to remove the stent. Type of Anesthesia:: General Drains: stent - Admit VTE Documentation VTE Present on Admission: No
[2019-04-27 15:56] VITALS: BP 141/80; BP 144/81; PULSE 107; RESP 16; TEMP 37; O2SAT 97
[2019-04-27 16:00] VITALS: BP 141/80; BP 150/77; PULSE 87; RESP 16; O2SAT 94
[2019-04-27 16:15] VITALS: BP 129/65; BP 141/80; PULSE 65; RESP 16; O2SAT 95
[2019-04-27 16:24] VITALS: BP 141/80; BP 147/89; PULSE 64; RESP 16; TEMP 36.9; O2SAT 99
[2019-04-27] MEDS: oxyCODONE 5 MG Tablet PO (16:52)
[2019-04-27 17:20] VITALS: BP 141/80; BP 150/82; PULSE 72; RESP 18; TEMP 36.4; O2SAT 98
== END 2019-04-27 17:21 | disposition home or self-care (01) ==
LOC: SDC 12:48
PROVIDERS: PCP Family Medicine; Referring Provider Urology; Visit Provider Urology
PROC: 0TJ98ZZ Inspection of Ureter, Via Natural or Artificial Opening Endoscopic (ICD-10-PCS; CPT 52352; principal; 2019-04-27 14:25)
DX: N20.1 Calculus of ureter (principal)
CPT/HCPCS: 00918; 52332; 52352; 76000; 82360; 88300; J7120; C1769; C2617; J2405

== ENCOUNTER 2019-09-05 21:11 | Emergency (ER) | payer SELFPAY ==
[2019-09-05 21:13] VITALS: BP 159/102; PULSE 84; RESP 16; TEMP 36.9; O2SAT 98; BMI 34.7
--- NOTE | 2019-09-05 21:59 | ED.VIS.GEN ---
History of Present Illness Chief Complaint: Lower Extremity Injury Informant: Patient Onset: Days Maximum Severity: Mild Narrative: Patient complains of left lateral thigh pain for a day or 2, he basically came back from a trip to [place] driving for 9 hours did not injure himself or do anything. He has had no fever cough chest pain shortness of breath, no history of DVT or PE he is a very healthy active individual no mobility he was concerned because of the lateral thigh pain about the possibility of a DVT Past Medical History - Allergies and Home Meds Allergies/Adverse Reactions: Allergies NSAIDS (Non-Steroidal Anti-Inflamma Adverse Reaction (Verified 09/05/19 21:15) Other GASTRIC BYPASS Primary Care Physician: Mark Mccarthy III, MD [Primary Care Provider] - Past Medical History: None Surgical History: - - Gastric bypass, hernia surgery Smoking Status: Current every day smoker Review of Systems General: Denies: Chills, Fever, Sweats Eyes: Denies: Visual changes - bilaterally, Diplopia ENT: Denies: Rhinorrhea, Sore throat Cardiovascular: Denies: Chest pain, Palpitations Respiratory: Denies: Dyspnea, Cough, Dyspnea on exertion Gastrointestinal: Denies: Abdominal pain, Nausea, Vomiting, Diarrhea, Melena, Hematochezia Genitourinary: Denies: Dysuria, Hematuria, Frequency Musculoskeletal: Reports: Extremity Pain. Denies: Back pain Skin: Denies: Rash, Wounds Neurological: Denies: Headache, Weakness, Numbness Physical Exam Vital Signs/Narrative: Vital Signs Temp Pulse Resp BP Pulse Ox 09/05/19 21:13 98.4 F 84 16 159/102 H 98 General: Well nourished, Well developed, No Acute Distress Head: Normocephalic, Atraumatic Eyes: Perrl, EOMI ENT: Moist mucous membranes, No rhinorrhea Neck: Supple, Nontender Cardiovascular: Regular rate, Regular rhythm, No murmurs Respiratory: No distress, CTA bilaterally, Chest nontender Abdomen: Soft, Nontender, Nondistended, Normal bowel sounds Back: Nontender, Normal Inspection Extremities: Nontender, No edema, - - Patient has sunburn related to being in a kayak all day today he complains of pain to the left lateral thigh area that is actually better he has no calf pain no knee pain the distal leg exam is entirely unremarkable full range of motion pulses normal he has no signs of cords edema DVT or vascular issues his exam is normal Skin: Normal color, No rash Neurological: Alert, Oriented x3, Cranial nerves II-XII grossly intact, Normal Strength, Normal Sensation Psychological: Normal affect, Normal Mood Diagnostic/Tx/Re-eval - Medical Decision Making His physical exam is unremarkable except for the sunburn that he got today when he was kayaking not related to the drive I explained to him that DVT would be very unlikely given that he has a focal area of pain over the left lateral thigh no medial pain no knee calf lower extremity edema etc. I suggested we send him home to do outpatient duplex scan he declined that option said he preferred to follow-up with his outpatient providers tomorrow and follow-up instructions that they gave him, he has had no fever no cough no chest pain no exposures to coronavirus Home stable Final impression left lateral thigh pain etiology unclear ED Disposition - Plan for ED Patient: Diagnosis: Left lateral thigh pain Instructions: ED Muscle Pain Leg Cramps Referrals: Mark Mccarthy III, MD [Primary Care Provider] -
== END 2019-09-05 22:21 | disposition home or self-care (01) ==
LOC: ED 22:02
PROVIDERS: Emergency Provider Emergency Medicine; PCP Family Medicine
DX: M79.652 Pain in left thigh (principal); F17.200 Nicotine dependence, unspecified, uncomplicated
CPT/HCPCS: 99282

== ENCOUNTER 2024-01-12 14:15 | Emergency (ER) | payer OTHER, SELFPAY ==
[2024-01-12 14:16] VITALS: BP 138/91; PULSE 71; RESP 16; TEMP 35.9; O2SAT 99; BMI 39.2
[2024-01-12 14:59] LABS: Bacteria 0 SEEN /hpf (None Seen); Mucous, Urine 0 SEEN /hpf (<or=2+); Squamous Epithelial Cells - UA 0 SEEN /hpf (0-5)
[2024-01-12 15:03] LABS: Absolute Lymphocyte Count 1.88 X10^3/uL (0.83-4.51); Absolute Neutrophil Count 6.3 X10^3/uL (2.0-7.7); Basophil# 0.05 X10^3/uL; Basophil% 0.5 % (0-1); Eosinophil# 0.09 X10^3/uL; Hematocrit 41.3 % (40-54); Lymphocyte # 1.88 X10^3/ul (0.83-4.51); Lymphocyte % 20.7 % (19-41); Mean Corp Hgb Conc 33.9 g/dL (32-36); Mean Corpuscular Hgb 28.7 pg (27.0-32.0); Mean Corpuscular Volume 84.8 fL (80-94); Mean Platelet Vol. 10.9 fl (6.2-12.0); Monocyte# 0.74 X10^3/uL; Monocyte% 8.1 % (0-10); NRBC Flagged by Analyzer 0 % (0-5); Neutrophil # 6.29 X10^3/uL (2.7-7.7); Neutrophil % 69.2 % (47-70); Platelet Count 244 K/mm3 (150-450); RBC Distribution Width CV 12.8 % (11.6-14.6); RBC Distribution Width SD 39.7 fl (35.1-43.9); Red Blood Count 4.87 M/mm3 (4.6-6.2); White Blood Count 9.1 K/mm3 (4.4-11.0)
[2024-01-12 15:05] LABS: Color, Urine Yellow (Yellow); Glucose, Dipstick Normal (Normal); Ketone-Dipstick Negative (Negative); Leukocyte Esterase-Dipstick 25 /ul (Negative); Nitrite-Dipstick Negative (Negative); Occult Blood-Urine Negative /ul (Negative); Protein-Dipstick 30 mg/dl (Negative); Urine Bilirubin Dipstick Negative (Negative); Urine Clarity Clear (Clear); Urine Urobilinogen 4 mg/dl (Normal)
[2024-01-12 15:45] LABS: Red Blood Cells-Urine 0-5 SEEN /hpf (0-5); White Blood Cells 0-5 SEEN /hpf (0-5)
[2024-01-12 15:56] LABS: ALB/GLOB Ratio 1.3 RATIO (0.9-2.4); AST(SGOT) 31 U/L (15-37); Alanine Aminotransfer ALT/SGPT 32 U/L (16-61); Albumin, Serum 4.1 g/dL (3.2-5.0); Alkaline Phosphatase 116 U/L (45-117); Anion Gap 5 (5-15); BUN 9 mg/dL (7-18); BUN/Creat Ratio 10.7 RATIO (10-20); Chloride 112 mmol/L (98-107); Creatinine, Serum 0.84 mg/dL (0.70-1.30); EST Glomerular Filtration Rate 107 mL/min (>60); Est Glom Filt Rate - Afr Amer 129 mL/min (>60); Estimated Creatinine Clearance 160.41 ml/min; Globulin 3.1 g/dL (2.2-4.2); Glucose 84 mg/dL (74-106); Lipase 71 U/L (13-75); Potassium 4.2 mmol/L (3.5-5.1); Protein, Total 7.2 g/dL (6.4-8.2); Sodium Level 140 mmol/L (136-145)
[2024-01-12 16:11] VITALS: BP 141/81; PULSE 83; RESP 14; TEMP 36.1; O2SAT 98
== END 2024-01-12 16:12 | disposition home or self-care (01) ==
PROVIDERS: Physician Assistant; Emergency Provider Emergency Medicine; PCP Nurse Practitioner Family; Visit Provider Emergency Medicine
DX: R10.11 Right upper quadrant pain (principal); N20.0 Calculus of kidney; I10 Essential (primary) hypertension; F17.210 Nicotine dependence, cigarettes, uncomplicated; K76.0 Fatty (change of) liver, not elsewhere classified; F32.A Depression, unspecified; Z79.52 Long term (current) use of systemic steroids
CPT/HCPCS: 76705; 80053; 81001; 83690; 85025; 93005; 99283; A4216

== ENCOUNTER → 2025-01-09 | Outpatient (CLI) | payer OTHER, SELFPAY ==
--- NOTE | 2025-01-09 10:14 | RAD_ITS ---
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
--- NOTE | 2025-01-09 10:14 | RAD_ITS ---
PROCEDURE: ANKLE MIN 3 VIEWS 01/09/2025 REASON FOR EXAM: PAIN TECHNIQUE: Procedure Code: RADANK Modality: DX Procedure: ANKLE MIN 3 VIEWS Laterality: Left COMPARISON: None FINDINGS: Bones: No demonstrated fracture or suspicious osseous lesion Joints: Normal alignment. Mortise appears intact. No effusion. Soft tissues: Soft tissues are unremarkable. Other: Calcaneal spurs RAD/Ankle min 3 Views IMPRESSION: Calcaneal spurs, otherwise unremarkable left ankle Reading Location: [id number]
== END | disposition home or self-care (01) ==
LOC: MTRAD 10:14
PROVIDERS: PCP Nurse Practitioner Family; Referring Provider Physician Assistant; Visit Provider Physician Assistant
DX: M25.572 Pain in left ankle and joints of left foot (principal); M79.672 Pain in left foot
CPT/HCPCS: 73610; 73630